=== PATIENT | male | born 1995 | race Native Hawaiian/Other Pacific Islander ===

== ENCOUNTER 2016-05-22 20:52 | Emergency (ER) | payer OTHER ==
[2016-05-22 21:11] VITALS: BP 127/71; PULSE 74; RESP 20; TEMP 98.5; O2SAT 98
[2016-05-22] MEDS ORDERED: SODIUM CHLORIDE 0.9% FLUSH 5 ML FLUSH IVF PRN (21:30)
[2016-05-22] MEDS ORDERED: cefTRIAXone 250 MG VIAL IM ONE (21:30)
[2016-05-22] MEDS ORDERED: AZITHROMYCIN PWD FOR SUSP 1 GM PACKET PO ONE (21:30)
[2016-05-22] MEDS ORDERED: LIDOCAINE HCL 1% 50 ML VIAL XX ONE (21:30)
--- NOTE | 2016-05-22 21:33 | PD ---
HPI Chief Complaint: Complaint Time Seen by Provider: 21:25 Travel History International Travel<30 days: No Contact w/Intl Traveler<30days: No Traveled to known affect area: No History of Present Illness HPI This is a 21-year-old uncircumcised male who presents for evaluation of urethral discharge and irritation of the glans penis. He reports that he engaged in unprotected intercourse in early April. Shortly thereafter he developed intermittent yellow discharge from the urethra. Since then he is developed irritation and redness of the glans penis. Initially he tried treating the issue with Betadine ointment. He then went to [facility] and was prescribed an antibiotic cream which did not seem to be helping. He then went back 5 days ago and was given a dose of fluconazole which didn't seem to help. For this reason he presents here for evaluation. He denies any testicular or scrotal pain, abdominal pain, nausea or vomiting, fevers. He has no other complaints. [facility] Past Medical History Medical History: Denies Significant Hx Immunizations Current: Yes Tetanus Vaccination: Unknown Influenza Vaccination: No Past Surgical History Surgical History: No Previous Surgery Other Surgery: Yes (NASAL SURGERY) Social History Alcohol Use: No Tobacco Use: No Substance Use: No Allergies-Medications (Allergen,Severity, Reaction): Coded Allergies: No Known Allergies (Unverified , 05/22/16) Reported Meds & Prescriptions Reported Meds & Active Scripts Active Augmentin (Amoxicillin-Clavulanate) 875-125 mg Tab 875 Mg PO BID 10 Days not for use in CrCl <30 ml/min. Clotrimazole Anti-Fungal Topical (Clotrimazole) 1% Cream 1 Applic TOPICAL BID 28 Days Review of Systems Except as stated in HPI: all other systems reviewed are Neg Physical Exam Narrative GENERAL: Well-developed well-nourished male in no acute distress CARDIOVASCULAR: Regular rate and rhythm. No murmur appreciated. RESPIRATORY: No accessory muscle use. Clear to auscultation. Breath sounds equal bilaterally. GASTROINTESTINAL: Abdomen soft, non-tender, nondistended. Hepatic and splenic margins not palpable. : Examination of the groin reveals erythema, erosion and purulent drainage of the foreskin and glans penis. There is some purulent yellow discharge from the urethral meatus. The patient is able to retract his foreskin fully. There is no chancre lesions. The scrotum and testicles appear normal. Data Data Last Documented VS Vital Signs Date Time Temp Pulse Resp B/P Pulse Ox O2 Delivery O2 Flow Rate FiO2 05/22/16 21:11 98.5 74 20 127/71 98 Orders Gc And Chlamydia Pcr (05/22/16 21:29) Azithromycin Powd Pack (Zithromax Powd P (05/22/16 21:30) Ceftriaxone Inj (Rocephin Inj) (05/22/16 21:30) Sodium Chloride 0.9% Flush (Ns Flush) (05/22/16 21:30) Lidocaine 1% Inj (50 Ml) (Xylocaine 1% I (05/22/16 21:30) Genital Culture(C&S)(Gc)(Gbs) (05/22/16 21:40) Labs Laboratory Tests Test 05/22/16 21:40 Chlamydia trachomatis DNA DETECTED (PCR) Neisseria gonorrhoeae DNA DETECTED (PCR) MDM Medical Decision Making Medical Screen Exam Complete: Yes Emergency Medical Condition: Yes Differential Diagnosis Urethritisgonococcal versus nongonococcal, balanitis, balanoposthitis, skin maceration, phimosis, paraphimosis Narrative Course The patient's history of unprotected sex with shortly thereafter development of dysuria and purulent urethral discharge is certainly suggestive of gonococcal or nongonococcal urethritis. On examination the patient does have balanopoposthitis as well certainly suspicious for the possibility of group A streptococcal infection or fungal infection. Therefore a wound culture was performed as well as a chlamydia and gonorrhea PCR. The patient is being empirically covered with Rocephin and azithromycin here. The patient be discharged prescription for clotrimazole cream as well as a ten-day course of Augmentin. He is encouraged to follow-up with a urologist if symptoms persist and return here for worsening symptoms. He is agreeable with this plan. Diagnosis Primary Impression: Urethritis Additional Impression: Balanoposthitis Referrals: Rigo Abdul MD Additional Instructions: Use the medications as prescribed. As discussed, twice a day gently retract the foreskin and wash the area with soap and water, dry thoroughly and apply antifungal cream. Follow-up with urologist and 1-2 weeks routinely if symptoms persist. Return here for worsening symptoms. As discussed, your symptoms are suggestive of the medial or gonorrhea which we have tested for but the tests are currently pending. It is important to follow- up with primary care or the health department for full panel of STD testing. You should notify all partners if the tests are positive. Med/Other Pt SpecificInfo: Prescription(s) given Scripts Amoxicillin-Clavulanate (Augmentin)875-125 mg [id number] Mg PO BID 10 Days Ref 0 not for use in CrCl <30 ml/min. Prov:Sunny Mike MD 05/22/16 Clotrimazole Topical (Clotrimazole Anti-Fungal Topical)1% Cream1 Applic TOPICAL BID 28 Days Ref 0 Prov:Sunny Mike MD 05/22/16 Disposition: 01 DISCHARGE HOME Condition: Stable Harshad Kowalski May 22, 2016 21:33
[2016-05-22] MEDS ORDERED: AUGM875T PO (21:41)
[2016-05-22] MEDS ORDERED: CLOT1CRE6 TOPICAL (21:41)
[2016-05-23 00:12] LABS: CHLAMYDIA PCR DETECTED (NOT DETECT); NEISSERIA PCR DETECTED (NOT DETECT)
== END 2016-05-22 22:20 | disposition home or self-care (01) ==
LOC: NEPB 20:52
DX: N34.2 Other urethritis (principal); N47.6 Balanoposthitis; A54.09 Other gonococcal infection of lower genitourinary tract
CPT/HCPCS: 87070; 87185; 87491; 87591; 96372; 99283; J0696; 87205

== ENCOUNTER 2017-04-15 17:26 | Emergency (ER) | payer SELFPAY ==
[~2017-04-15] VITALS: Ht 177.8 cm; Wt 59.0 kg
[~2017-04-15 17:26] MED LIST: AUGM875T PO; CLOT1CRE6 TOPICAL
[2017-04-15 17:28] VITALS: BP 109/62; PULSE 76; RESP 14; TEMP 99.1
--- NOTE | 2017-04-15 17:53 | PD ---
HPI Chief Complaint: Complaint Time Seen by Provider: 17:37 Travel History International Travel<30 days: No Contact w/Intl Traveler<30days: No Traveled to known affect area: No History of Present Illness HPI Patient is a 22 year old male who presents to ER for treatment of possible STD. Patient reports that he is sexually active and did not use condoms. Reports that he has noticed a yellow discharge from his penis. Denies fever/chills. Denies dysuria/urinary urgency/freq. Patient request to be treated for possible STD. Denies abdominal pain, nausea or vomiting. History Social History Alcohol Use: No Tobacco Use: No Allergies-Medications (Allergen,Severity, Reaction): Coded Allergies: No Known Allergies (Unverified Adverse Reaction, Unknown, 04/15/17) Reported Meds & Prescriptions Reported Meds & Active Scripts Active Augmentin (Amoxicillin-Clavulanate) 875-125 mg Tab 875 Mg PO BID 10 Days not for use in CrCl <30 ml/min. Clotrimazole Anti-Fungal Topical (Clotrimazole) 1% Cream 1 Applic TOPICAL BID 28 Days Review of Systems General / Constitutional: No: Fever Eyes: No: Visual changes HENT: No: Headaches Cardiovascular: No: Chest Pain or Discomfort Respiratory: No: Shortness of Breath Gastrointestinal: No: Abdominal Pain Genitourinary: Positive: Discharge, No: Urgency, Frequency, Dysuria Musculoskeletal: No: Pain Skin: No Rash Neurologic: No: Weakness Psychiatric: No: Depression Endocrine: No: Polydipsia Hematologic/Lymphatic: No: Easy Bruising Physical Exam Narrative GENERAL: Well-nourished, well-developed patient. SKIN: Focused skin assessment warm/dry. HEAD: Normocephalic. EYES: No scleral icterus. No injection or drainage. NECK: Supple, trachea midline. No JVD or lymphadenopathy. CARDIOVASCULAR: Regular rate and rhythm without murmurs, gallops, or rubs. RESPIRATORY: Breath sounds equal bilaterally. No accessory muscle use. GASTROINTESTINAL: Abdomen soft, non-tender, nondistended. MUSCULOSKELETAL: No cyanosis, or edema. BACK: Nontender without obvious deformity. No CVA tenderness. Data Data Last Documented VS Vital Signs Date Time Temp Pulse Resp B/P (MAP) Pulse Ox O2 Delivery O2 Flow Rate FiO2 04/15/17 17:28 99.1 76 14 109/62 (78) Orders Orders Gc And Chlamydia Pcr (04/15/17 17:38) Urinalysis - C+S If Indicated (04/15/17 17:38) MDM Medical Screen Exam Complete: Yes Emergency Medical Condition: No Narrative Course A medical screening exam was performed: Patient will follow up with [facility] for treatment and workup of penile discharge At the time of evaluation the presenting medical condition was determined not to be of an emergent nature. The patient was given the option of receiving additional care, but declined. Patient was given options for additional community resources from which to obtain care. The Patient Has Been advised to seek medical attention for their presenting complaint. The patient has been advised to return to the ER at any time if an emergent condition develops. Primary Impression: Encounter for medical screening examination Rissa Morley DO Apr 15, 2017 17:53
== END 2017-04-15 18:02 | disposition left against medical advice (07) ==
LOC: NEPD 17:26
DX: R36.9 Urethral discharge, unspecified (principal)
CPT/HCPCS: 99281